=== PATIENT | female | born 1935 | race Caucasian/White ===

== ENCOUNTER 2018-03-26 06:00 | Day surgery (SDC) | payer MEDICARE, OTHER, SELFPAY ==
--- NOTE | 2018-03-26 | COLBX_PTH ---
PATIENT: KILEY OROURKE LOC: EN U#:[id number] AGE/SX: 82/F ROOM: RE03/26/[address]: Dr. Kalyan De La Cruz MD : [id number] BED: DIS: 03/26/2018 SPEC #: [id number] RECD: 03/26/18 13:07 STATUS: JADE REAurelia #: [id number] LUCINA: 03/26/18 00:[address]: Kalyan De La Cruz DEPT: SURGICAL PATHOLOGY RECD BY: Williams Gil ENTERED: 03/26/18 13:08 SP TYPE: COLON BX OTHR DR: Dr. Dheeraj Mckeon DO Tissues: Descending colon Procedures: Surgery Specimen Level IV HEADER OPERATION: Colonoscopy (MAC) PRE-OP DIAGNOSIS: Personal history of colonic polyps TISSUE SUBMITTED: Descending colon polyp MICROSCOPIC DIAGNOSIS Descending colon polyp, biopsy: Fragments of tubular adenoma. SJ:chadwick 03/27/18 MICROSCOPIC DESCRIPTION Slides are reviewed. GROSS DESCRIPTION Received in fixative is one container labeled with the patient's name and designated descending colon polyp. The specimen consists of multiple irregular fragments of sullivan soft tissue that in aggregate measure 0.6 x 0.2 x .1 cm. The entire specimen is submitted in one cassette. / SJ:rg 03/26/18 TC:1 CPT: 10900
[2018-03-26 06:27] VITALS: BP 170/83; PULSE 115; RESP 16; O2SAT 99; BMI 21.9
--- NOTE | 2018-03-26 07:38 | PCM.OPRPT ---
Problem List (1) Personal history of colonic polyps Status: Acute Report of Operation Date of Procedure: 03/26/18 Pre-Operative Diagnosis: Personal history of colonic polyps Post-Operative Diagnosis: Same Surgery/Procedure Performed:: Colonoscopy with snare polypectomy Type of Anesthesia:: MAC Description of Procedure: Patient was brought into the endoscopy suite. Placed in the left lateral decubitus position. She was given graded anesthesia. Colonoscope was inserted into the rectum. It was directed through the sigmoid colon, descending colon, transverse colon, ascending colon, to the cecum without difficulty. Operative findings: 1. Cecum: Normal appearance no mass lesions normal ileocecal valve. 2. Ascending colon: Normal appearance no mass lesions. 3. Transverse colon: Normal appearance no mass lesions. 4. Descending colon: Small polyp was identified was removed with snare cautery technique and brought back to the channel the scope. 5. Sigmoid colon: Normal appearance minimal diverticular disease seen. 6. Rectum: Normal appearance no mass lesions internal hemorrhoids were identified. Scope was withdrawn digital rectal exam showed no masses within the anus. Patient will need to have another colonoscopy in 3 years. - Admit VTE Documentation VTE Present on Admission: No VTE Mechan Device Prophylaxis: None VTE Pharm Prophylaxis ordered?: No Reason prophylaxis not ordered:: Treatment Not Indicated
[2018-03-26 07:44] VITALS: BP 153/95; BP 170/83; PULSE 107; RESP 16; TEMP 36.5; O2SAT 96
[2018-03-26 07:50] VITALS: BP 148/88; BP 170/83; PULSE 86; RESP 16; O2SAT 96
[2018-03-26 07:55] VITALS: BP 145/97; BP 170/83; PULSE 77; RESP 16; O2SAT 93
--- NOTE | 2018-03-26 07:55 | SUR.PHASEI ---
TACHY IN 100-115'S, THEN HR DROPS TO 60-80'S IN A REPEATED PATTERN WHICH SHE REPORTEDLY HAD THE ENTIRE CASE PER MARAH NG CRNA.
[2018-03-26 08:00] VITALS: BP 158/78; BP 170/83; PULSE 53; RESP 16; TEMP 36.4; O2SAT 100
[2018-03-26 08:30] VITALS: BP 170/83
== END 2018-03-26 08:30 | disposition home or self-care (01) ==
LOC: EN 06:00 → AC 06:02
PROVIDERS: Family Provider Student in an Organized Health Care Education/Training Program; PCP Student in an Organized Health Care Education/Training Program; Visit Provider Surgery
PROC: 0DJD8ZZ Inspection of Lower Intestinal Tract, Via Natural or Artificial Opening Endoscopic (ICD-10-PCS; CPT 45378; principal; 2018-03-26 06:55)
DX: D12.4 Benign neoplasm of descending colon (principal); K57.30 Diverticulosis of large intestine without perforation or abscess without bleeding; Z86.010 Personal history of colon polyps; M19.90 Unspecified osteoarthritis, unspecified site; Z85.828 Personal history of other malignant neoplasm of skin; Z87.440 Personal history of urinary (tract) infections; Z79.2 Long term (current) use of antibiotics; Z79.899 Other long term (current) drug therapy
CPT/HCPCS: 45380; 88305; J7120; J1610